=== PATIENT | male | born 1995 | race Hispanic/Latino ===

== ENCOUNTER 2021-05-01 19:54 | Emergency (ER) | payer SELFPAY ==
[~2021-05-01] VITALS: Ht 165.1 cm; Wt 117.9 kg
[~2021-05-01 19:54] MED LIST: LEXAPRO5 MG; TRAZODONE HCL50 MG; VYVANSE20 MG
[2021-05-01] MEDS ORDERED: IBUPROFEN600 MG PO (22:24)
[2021-05-01] MEDS ORDERED: IBUPROFEN 400 MG TAB PO ONE (22:30)
[2021-05-01] MEDS ORDERED: IBUPROFEN 400 MG TAB ONE (22:40)
== END 2021-05-01 22:40 | disposition home or self-care (01) ==
LOC: ER 20:14
DX: S62.394A Other fracture of fourth metacarpal bone, right hand, initial encounter for closed fracture (principal); S62.396A Other fracture of fifth metacarpal bone, right hand, initial encounter for closed fracture; W22.09XA Striking against other stationary object, initial encounter; Y92.008 Other place in unspecified non-institutional (private) residence as the place of occurrence of the external cause
CPT/HCPCS: 99283